=== PATIENT | female | born 1940 | race Caucasian/White ===

== ENCOUNTER 2018-08-26 22:38 | Inpatient (IN) | payer OTHER ==
[~2018-08-26] VITALS: Ht 167.6 cm; Wt 82.7 kg
--- NOTE | 2018-08-26 22:40 | NUR ---
Patient to ER bed 5 to gown for evaluation. Side rails up.
[2018-08-26 22:44] VITALS: BP_SYST 160
[2018-08-26] MEDS ORDERED: LOSA50TA3 PO (22:50)
[2018-08-26] MEDS ORDERED: ASA81 PO (22:50)
[2018-08-26] MEDS ORDERED: SIMV40TA2 PO (22:50)
--- NOTE | 2018-08-26 22:51 | NUR ---
Medication reconciliation completed with information provided by patient. Any prior medication reconciliation on file was reviewed and corrected.
--- NOTE | 2018-08-26 23:00 | NUR ---
Pt BIB ALS C/O Rt wrist and hip pain S/P mechanical fall. Pt was walking on the stairs without handrail, lost balnce and fell on her side. Pt denies any KO, headache, N/V, or any other symptoms at this time. Vital signs are stable, will continue to monitor.
--- NOTE | 2018-08-26 23:20 | NUR ---
ER Dr. Mcknight at bedside examining patient.
[2018-08-26] MEDS ORDERED: NACL 0.9% 1,000 ML IV ONE (23:26)
[2018-08-26] MEDS ORDERED: DIPHENHYDRAMINE INJ 50 MG/ML VIAL IVP ONE (23:30)
[2018-08-26] MEDS ORDERED: MORPHINE 4 MG/ML INJ. SYRINGE IVP ONE (23:30)
--- NOTE | 2018-08-26 23:35 | NUR ---
Radiology at bedside for xray
[2018-08-26 23:56] LABS: HEMOGLOBIN 12.5 g/dL (12.0-16.0); RED BLOOD CELL COUNT(AUTO) 3.97 MIL/uL (4.2-6.2); WHITE BLOOD COUNT (AUTO) 5.5 K/uL (4.8-10.8)
[2018-08-26 23:57] LABS: BASOPHILS % (AUTO) 0.5 % (0.0-2.0); EOSINOPHILS # (AUTO) 0.1 K/uL (0.0-0.4); EOSINOPHILS % (AUTO) 1.8 % (0.0-4.0); LYMPHOCYTES # (AUTO) 1.3 K/uL (1.0-5.5); LYMPHOCYTES % (AUTO) 23.6 % (20.5-51.5); MEAN CORPUSCULAR HEMOGLOBIN 31 pg (27-31); MEAN CORPUSCULAR HGB CONC 34 % (32-36); MEAN CORPUSCULAR VOLUME 93 fL (79.0-98.0); MONOCYTES # (AUTO) 0.4 K/uL (0.0-1.0); MONOCYTES % (AUTO) 6.9 % (1.7-9.3); NEUTROPHILS # (AUTO) 3.7 K/uL (1.8-7.7); NEUTROPHILS % (AUTO) 67.2 % (40.0-70.0); PLATELET COUNT (AUTO) 189 K/uL (130-430); RED CELL DISTRIBUTION WIDTH 12.9 % (9.0-15.0)
--- NOTE | 2018-08-27 | NUR ---
Pt has been medicated for 4/10 pain. Pt tolerated medication well, family at bedside, will continue to monitor.
[2018-08-27 00:09] LABS: ANION GAP 9 (5-15); CALCIUM 9.1 mg/dL (8.4-11.0); CHLORIDE 108 mmol/L (98-107); CREATININE 0.87 mg/dL (0.55-1.30); GLUCOSE 121 mg/dL (70-99); POTASSIUM 4.2 mmol/L (3.5-5.1); SODIUM SERUM 143 mmol/L (136-145); UREA NITROGEN, BLOOD 28 mg/dL (8-21)
[2018-08-27 00:12] LABS: PROTHROMBIN TIME 9.8 SECS (9.5-12.5)
[2018-08-27 00:14] LABS: ALANINE AMINOTRANSFERASE 29 U/L (12-78); ALBUMIN 3.4 g/dL (3.4-4.8); ASPARTATE AMINOTRANSFERASE 21 U/L (10-37); TOTAL BILIRUBIN 0.4 mg/dL (0.0-1.0)
--- NOTE | 2018-08-27 01:10 | NUR ---
Patient will be admitted to care of Dr. Nogueira. Admitted to med surg unit. Will go to room 121A. Belongings list completed. Summary report printed. Report will be given via telephone.
[2018-08-27] MEDS ORDERED: LOSA50TA3 PO (01:12)
[2018-08-27] MEDS ORDERED: SIMV40TA2 PO (01:12)
[2018-08-27] MEDS ORDERED: ASPI-1153 PO (01:12)
--- NOTE | 2018-08-27 01:20 | NUR ---
Pt is resting quietly in bed, no acute distress noted at this time. Vital signs are stable, will continue to monitor.
[2018-08-27 01:45] VITALS: BP_SYST 156
--- NOTE | 2018-08-27 01:45 | NUR ---
ADMISSION: The patient, NICOLE DOMINGUEZ, 77 y/o, F admitted by ROLA ARAGON MD, With the diagnosis of R HIP FRACTURE ,was given written information regarding hospital policies, unit procedures and contact persons.
[2018-08-27] MEDS: D5NS 1,000 ML IV SCH ×2 (02:00→17:39)
[2018-08-27] MEDS ORDERED: ONDANSETRON HCL 4 MG/2 ML VIAL IVP PRN ×2 (02:00→08:15)
--- NOTE | 2018-08-27 02:04 | NUR ---
CONSULT REASON FOR CONSULT: HIP FRACTURE PERSON I SPOKE WITH: SKIP CONSULTING PHYSICIAN: DR. GOULD (DR. RODRIGUEZ SERVICE CREW SUPERVISOR) LINUX DEVELOPER PHONE NUMBER: [phone] ORDERING PHYSICIAN: DR. ARANDA
--- NOTE | 2018-08-27 03:50 | NUR ---
Rounds Patient is resting with eyes close, son at bedside. No c/o pain at this time. Call light in reach, will cont to monitor.
[2018-08-27] MEDS: MORPHINE 4 MG/ML INJ. SYRINGE IVP PRN ×4 (06:05→20:51)
--- NOTE | 2018-08-27 06:59 | NUR ---
End of shift notes Patient is resting comfortably at this time with son at bedside. No c/o pain and no s/s of any distress noted. All needs met and anticipated by staff. Call light in reach, endorse care to incoming nurse.
[2018-08-27 07:53] VITALS: BP_SYST 143
--- NOTE | 2018-08-27 07:58 | NUR ---
Initial note: Patient is alert, oriented x4 , sleepiness due to post pain shot, but states no pain when not moving. She is NPO and on D5NS IVF at 65 ml/hr infusing well via left AC # 20G, no sign of infiltration. 2 family member are at bedside.
[2018-08-27] MEDS ORDERED: ACETAMINOPHEN 325 MG TABLET PO PRN (08:15)
--- NOTE | 2018-08-27 08:55 | NUR ---
CONSULTATION: DR BRO IS AWHERE OF THE CONSULT FOR CARDIAC CLEARENCE
--- NOTE | 2018-08-27 08:59 | NUR ---
Dr. South can not see the Pt. due to Insurance. has called and states that he can not see patient, because she has [employer]. Will F/U with the correctional counselor/case manager, and will Inform
[2018-08-27] MEDS ORDERED: DOCUSATE SODIUM 100 MG CAPSULE PO SCH (09:00)
[2018-08-27] MEDS ORDERED: CALCITONIN SALMON,SYNTHETIC 3.7 ML SPRAY.PUMP NS SCH (09:00)
[2018-08-27] MEDS ORDERED: LOSARTAN POTASSIUM 50 MG TABLET (COZAAR) PO SCH (09:00)
--- NOTE | 2018-08-27 09:03 | NUR ---
Cardio round: Dr. Lake makes round for Cardiac clearance. Speaks to the patient and 2 family members at bedside.
[2018-08-27] MEDS: FAMOTIDINE 20 MG TABLET PO SCH ×2 (09:32→20:49)
--- NOTE | 2018-08-27 10:00 | NUR ---
MEIER CATH: # 16 FR Meier catheter with 10 cc bulb inserted with use of sterile technique. Bulb inflated with 10 cc sterile water. Immediate return of 750 cc urine noted. Bedside drainage bag placed below level of bladder. Urine sample for UA collected and sent to lab . Pt tolerated procedure well .
--- NOTE | 2018-08-27 10:08 | NUR ---
MARY Mgt: Per Dr. Lake, Susannah Wesley (Orthopaedic surgeon) is currently the agricultural extension officer orthro and is not contracted with patient's insurance. MARY spoke with Ricardo ( MARY @ [facility]) @ P and informed her regarding the case. Per Ricardo, she will try to find a contracted othro surgeon to see patient at [facility] or possible transfer patient out to other contracted facility. MARY faxed H&P, progress notes and x-rays to Ricardo at [facility] . CM to follow up.
[2018-08-27 11:14] LABS: BILIRUBIN,URINE NEGATIVE (NEGATIVE); BLOOD, URINE 1+ (NEGATIVE); CLARITY/URINE CLEAR (CLEAR); COLOR,URINE YELLOW (YELLOW); GLUCOSE,URINE NEGATIVE (NEGATIVE); KETONES,URINE NEGATIVE (NEGATIVE); LEUKOCYTE ESTERASE ,URINE NEGATIVE (NEGATIVE); NITRITE, URINE NEGATIVE (NEGATIVE); PROTEIN URINE NEGATIVE (NEGATIVE); UROBILINOGEN,URINE 0.2 (0.2-1.0)
[2018-08-27 11:23] LABS: BACTERIA,URINE RARE /HPF (None Seen); WBC,URINE 0-3 /HPF (0-3)
[2018-08-27 12:21] VITALS: BP_SYST 149
--- NOTE | 2018-08-27 12:55 | NUR ---
RN round: Patient is sleeping comfortable with 4 family members at bedside. Still NPO and IVF infusing. Awaiting for Ortho consult from Insurance.
--- NOTE | 2018-08-27 13:09 | NUR ---
MARY Mgt: Follow up with Ricardo ( MARY @ [facility]) @ . Per Ricardo, they are currently awaiting call back from there MD. HERNANDEZ to follow up
[2018-08-27 13:10] VITALS: BP_SYST 149
--- NOTE | 2018-08-27 14:34 | NUR ---
Refused to be turned and Michael's traction: Encourage patient to be turned to prevent skin breakdown, and put Michael's traction as ordered, but she states it's hurt every times she moving. She refuses to be turned and put Michael's traction. Pain medication given as PRN ordered . Will F/U on pain level.
--- NOTE | 2018-08-27 14:53 | NUR ---
MARY Mgt: Received a call from Ricardo (MARY @ [facility]). Plan is to transfer patient to a contracted facility. According to Ricardo possibly to [facility]
--- NOTE | 2018-08-27 14:54 | NUR ---
CONSULTATION: REASON FOR CONSULT: SEPSIS CONSULTING PHYSICIAN: RUTH CRAIG ORDERED BY: NUZHAT LONDON MD SPOKE WITH FERNANDO [phone] Addendum: 08/27/18 at 1458 by Teresa Antony CNA WRONG PATIENT
[2018-08-27 16:13] VITALS: BP_SYST 144
--- NOTE | 2018-08-27 16:48 | NUR ---
MARY Mgt: Received a call from Ricardo (MARY @ [facility] ) @ . Patient will be transferring to [facility] instead of [facility] as per family request. Ricardo is currently arranging transfer. Ricardo will call nursing station if transfer happens after 4:30PM. MARY made patient and family aware. -PAYAM/ANGEL
--- NOTE | 2018-08-27 17:00 | NUR ---
DC ordered: Dr. Mayes has called for discharge order to transfer patient to contracted hospital< [facility]> per family requesting.
--- NOTE | 2018-08-27 18:32 | NUR ---
Closing note: Patient is stable, managing pain well with Morphine IVP, still NPO, On IVF with D5 NS running at 65 ml/hr. Live catheter draining well via gravity. Awaiting for [place] case aide call for bed and transportation for transfer to [facility].
--- NOTE | 2018-08-27 19:05 | NUR ---
OPENING NOTES RECEIVED PATIENT IN BED RESTING. AAOX4 AND ABLE TO VERBALIZE NEEDS. FAMILY IS AT THE BEDSIDE. PATIENT IS PENDING DISCHARGE TO [facility] PENDING AN AVAILABLE BED. IVF INFUSING D5NS AT 65ML/HR WITH NO S/S OF INFILTRATION. MEIER CATHETER DRAINING BY GRAVITY YELLOW URINE. CALLED [facility] WITHIN REACH AND ORIENTED THE PATIENT TO THE ROOM. BED ALARM IS ACTIVE AND SAFETY PRECAUTIONS IN PLACE.
[2018-08-27 20:00] VITALS: BP_SYST 144
--- NOTE | 2018-08-27 20:45 | NUR ---
CONTACTED MARY VAUGHAN FROM [employer] @ [phone] REGARDING PLAN FOR DC. SHE STATS THAT [facility] IS STILL THE PLAN AND IS WAITING FOR BED AVAILABILITY AND SHE WOULD CONTACT THE STATION REGARDING ANY UPDATES. PROVIDED STATION NUMBER AND WILL FOLLOW UP.
[2018-08-27] MEDS ORDERED: SIMVASTATIN 40 MG TABLET PO SCH (21:00)
--- NOTE | 2018-08-27 21:20 | NUR ---
CALLED MARY VAUGHAN FROM [facility] [employer] @ [phone], WAS INFORMED THAT [facility] AND IS NOW WAITING FOR AN ACCEPTING PHYSICIAN. SHE STATES SHE WILL CALL THE NURSING STATION WITH FURTHER UPDATES.
--- NOTE | 2018-08-27 22:12 | NUR ---
CONTACTED ALEXUS IN REGARDS TO FURTHER UPDATES, WAS INFORMED THAT THE PHYSICIAN ACCEPT[facility], BUT NOW THEIR IS NO LONGER A BED AVAILABLE. SHE WILL CALL THE STATION WITH FURTHER UPDATES.
--- NOTE | 2018-08-27 22:15 | NUR ---
PATIENT IN BED RESTING. ADMINISTERED MORPHINE FOR PAIN AND TOLERATED WELL. NO RESPIRATORY DISTRESS.
--- NOTE | 2018-08-27 23:17 | NUR ---
CONTACTED THE CM FROM [facility], SPOKE WITH LESLIE AND SHE INFORMED ME THAT WE ARE WAITING FOR THE BED AVAILABILITY AND SHE WILL CONTACT THE HS AT [facility] ONCE AGAIN.
--- NOTE | 2018-08-27 23:36 | NUR ---
Report give to ANGEL Moralez from [facility]. Patient going to room 308 bed B. No further questions. Direct line to [facility] unit is [phone].
--- NOTE | 2018-08-27 23:57 | NUR ---
RECEIVED A CALL FROM MARY NELSON WITH [facility]. DR. JENNINGS WILL ACCEPT [facility], PATIENT WILL GO TO [facility] BED 2. TRANSPORTATION ARRANGED WITH [facility] ([phone]) ETA: 0045.
[2018-08-28 00:15] VITALS: BP_SYST 155
[2018-08-28] MEDS: MORPHINE 4 MG/ML INJ. SYRINGE IVP PRN (00:50)
--- NOTE | 2018-08-28 01:30 | NUR ---
Discharge - Transfer to [facility]. Patient d/c in stable condition. [facility] transport with 2 staff. Patient has colby and IV intact. Medicated with morphine at 0050. No respiratory distress.
== END 2018-08-28 01:30 | disposition short-term general hospital (02) | DRG 536 ==
LOC: SED 22:38 → SMU 08-27 01:10
PROVIDERS: ADMIT Internal Medicine Hospice and Palliative Medicine; ATTEND Internal Medicine Hospice and Palliative Medicine
DX: S72.141A Displaced intertrochanteric fracture of right femur, initial encounter for closed fracture (principal); E78.5 Hyperlipidemia, unspecified; I10 Essential (primary) hypertension; J45.909 Unspecified asthma, uncomplicated; E78.00 Pure hypercholesterolemia, unspecified; M19.90 Unspecified osteoarthritis, unspecified site; W01.0XXA Fall on same level from slipping, tripping and stumbling without subsequent striking against object, initial encounter; Z79.82 Long term (current) use of aspirin; Z79.899 Other long term (current) drug therapy; Z90.710 Acquired absence of both cervix and uterus; Z88.0 Allergy status to penicillin; Z88.2 Allergy status to sulfonamides; Y93.89 Activity, other specified; Y92.89 Other specified places as the place of occurrence of the external cause; Y99.8 Other external cause status
CPT/HCPCS: 36415; 71045; 72170-TC; 73502; 80053; 81000-TC; 85025; 85610-TC; 85730-TC; 87081; 96361; 96374; 96375; 99285; J1200; J2270; J7030; J7042